=== PATIENT | female | born 1960 | race Caucasian/White ===

== ENCOUNTER 2017-05-05 10:25 | Observation (INO) | payer BC ==
--- NOTE | ~2017-05-05 | HP ---
History And Physical [place] [address] [facility] [place]. [address] NAME: CIRA HORN : 60 STATUS : ADM Jovana PAT#: [id number] AGE: 56 ADM/REG DATE : 05/05/17 MR#: [id number] REPORT SERV DATE: 05/05/17 DICTATED BY: CASSIUS ELLINGTON DATE: 05/05/17 REPORT STATUS : Draft TRANSCRIBED BY: MODL DATE: 05/05/17 DATE OF ADMISSION: 05/05/2017 CHIEF COMPLAINT: Right ankle fracture. HISTORY: The patient is a 56-year-old, who visit some friends, run on some stairs and sustained a trimalleolar ankle fracture. She was brought to emergency department with deformity of her ankle. In the emergency department, we reduced the ankle . She apparently . She lives in [place]. Says history of spinal fusion in the past and followed by Neurosurgery at [place]. She had no complaints to her ankle prior to this injury. PAST MEDICAL HISTORY: Hypercholesterolemia. ALLERGIES: SULFA. MEDICATIONS: Documented in the chart and performed on med rec. SOCIAL HISTORY: She is . Lives with in [place]. No smoking. FAMILY HISTORY: Noncontributory. REVIEW OF SYSTEMS: Times 10 negative except for above. PHYSICAL EXAMINATION: GENERAL: Well-developed, well-nourished female, in no acute distress. HEENT: Normocephalic, atraumatic. RESPIRATORY: Nonlabored respirations. Equal chest rise bilaterally. EXTREMITIES: No cyanosis, clubbing, or edema. Splint on the right lower extremity. MUSCULOSKELETAL: Moving her toes. Sensation is intact to light touch. Cap refill is less than 2. She is in a splint due to the acute reduction. SKIN: No rashes or lesions of her extremities. PSYCH: Appropriate mood and affect. NEURO: Alert and oriented x3. DIAGNOSTIC DATA: X-rays show a trimalleolar ankle fracture, right ankle. Postreduction films are pending. ASSESSMENT AND PLAN: Trimalleolar ankle fracture. We are going to admit her to hospital overnight. Keep her n.p.o. after midnight. We will plan for operative fixation of this ankle fracture tomorrow. Discussed risks, benefits with her and she wants to proceed. We will plan for open reduction and internal fixation tomorrow. History And Physical [place] [address] [facility] [address] NAME: CIRA HORN : 60 STATUS : ADM Jovana PAT#: [id number] AGE: 56 ADM/REG DATE : 05/05/17 MR#: [id number] REPORT SERV DATE: 05/05/17 DICTATED BY: CASSIUS ELLINGTON DATE: 05/05/17 REPORT STATUS : Draft TRANSCRIBED BY: PAULA DATE: 05/05/17 SUNG/PAULA Cassius Ellington MD / [id number] CC: Cassius Ellington MD
--- NOTE | ~2017-05-05 | OP ---
Record Of Operation [facility] [address] [place]. [address] NAME: CIRA HORN : 60 STATUS : ADM Jovana PAT#: [id number] AGE: 56 ADM/REG DATE : 05/05/17 MR#: [id number] REPORT SERV DATE: 05/06/17 DICTATED BY: CASSIUS ELLINGTON DATE: 05/06/17 REPORT STATUS : Draft TRANSCRIBED BY: MODL DATE: 05/06/17 DATE OF PROCEDURE: 05/06/2017 PREOPERATIVE DIAGNOSIS: Right bimalleolar ankle fracture. POSTOPERATIVE DIAGNOSIS: Right bimalleolar ankle fracture. PROCEDURE: Open treatment of bimalleolar ankle fracture with internal fixation. SURGEON: Cassius Ellington MD. ANESTHESIA: General. ESTIMATED BLOOD LOSS: 15. IMPLANTS: Arthrex lateral locking plate and 4.0 cannulated screws medially. SPECIMEN: None. ANTIBIOTICS: Ancef was given prior to incision. HISTORY: The patient is a 56-year-old female, who fell yesterday down some stairs and sustained a fracture/dislocation of right ankle. She was brought to the emergency department and then had her ankle reduced in the emergency department by the emergency physician. She was placed in a splint. She was then admitted to the hospital overnight for pain control. We discussed risks and benefits of surgery and nonoperative treatment with her and she elected for surgery. We discussed the risks including cardiac and pulmonary complication, anesthesia, damage to surrounding tissue, infection, nonunion, malunion, failure to heal. After discussing those risks, she elected to proceed. OPERATIVE NOTE: The patient was seen in the preoperative area, consented, and marked. We answered all the questions she had to her satisfaction. She was taken back to the operative suite, placed in supine position. Underwent general anesthesia. We prepped and draped the right leg in sterile fashion and paused to perform a time-out, confirming correct patient, procedure, diagnosis, and extremity. I first started with a lateral approach to the fibula, dissected down to the fracture site. I was able to anatomically reduce the fracture under direct visualization, held it with a clamp and then placed a lag screw from anterior to posterior. The lag screw was then placed on the fracture and reduced. We placed a lateral plate on the fibula. We placed three proximal cortical screws and then four locking screws distally. We completed our fixation of the fibula. We took x-rays, AP and lateral planes, to make sure it had appropriate reduction and fixation. We then proceeded to the medial malleolus. I made a medial approach over the medial side of her ankle. She had a previous incision over on this side. Previous to this, I dissected down to the fracture site. I was able to Record Of Operation [place] [address] [place]. [address] NAME: CIRA HORN : 60 STATUS : ADM Jovana PAT#: [id number] AGE: 56 ADM/REG DATE : 05/05/17 MR#: [id number] REPORT SERV DATE: 05/06/17 DICTATED BY: CASSIUS ELLINGTON DATE: 05/06/17 REPORT STATUS : Draft TRANSCRIBED BY: PAULA DATE: 05/06/17 reduce the fracture, held it anatomically with a clamp. I then placed two guidewires across the fracture, placed 4.0 cannulated screws, getting good purchase, compressing the fracture on the medial side. When that was completed, we took x-rays, AP, lateral, mortise, and a stress view, and felt that our reduction was anatomic. We had the appropriate implants in position. When that was completed, we irrigated all the wounds, closed the wounds, placed her in a splint. She was awakened, no complications, taken to PACU in stable condition. Postop, she will be discharged home either today or in the morning and she is going to follow up in [place] because that is where she lives. SUNG/PAULA Cassius Ellington MD / [id number] CC: Cassius Ellington MD
[2017-05-05] MEDS ORDERED: WELLXL300 PO (11:19)
[2017-05-05] MEDS ORDERED: CYMBALTA60 PO (11:19)
[2017-05-05] MEDS ORDERED: ADDER10 PO (11:19)
[2017-05-05] MEDS ORDERED: ZOCOR10 PO (11:19)
[2017-05-05] MEDS ORDERED: ROXICODONE15 MG PO (11:20)
[2017-05-05] MEDS ORDERED: IBU600 PO (11:20)
[2017-05-05] MEDS ORDERED: FLEXERIL5 MG PO (11:20)
[2017-05-05] MEDS ORDERED: NEUR100 PO (11:20)
[2017-05-05] MEDS ORDERED: PRILOSEC40 MG PO (11:21)
[2017-05-05] MEDS ORDERED: BUSPAR5 PO (11:21)
[2017-05-05 18:14] LABS: ALBUMIN 3.3 G/DL (3.5-5.0); ALKALINE PHOSPHATASE 96 U/L (45-117); BUN (BLOOD UREA NITROGEN) 18 MG/DL (6-23); CALCIUM, SERUM 8.6 MG/DL (8.5-10.4); CHLORIDE, SERUM 109 MMOL/L (96-112); CO2 (CARBON DIOXIDE) 24 MMOL/L (24-34); CREATININE 0.95 MG/DL (0.55-1.02); GFR AFRICAN AMERICAN 78 ML/MIN (>=60); GFR NON AFRICAN AMERICAN 67 ML/MIN (>=60); GLOBULIN 3.4 G/DL (2.5-4.1); GLUCOSE, SERUM 135 MG/DL (60-99); SGPT(ALT) 29 U/L (5-65); SODIUM, SERUM 137 MMOL/L (135-148); TOTAL BILIRUBIN 0.3 MG/DL (0-1.2); TOTAL PROTEIN 6.7 G/DL (6.0-8.5)
[2017-05-05 18:17] LABS: POTASSIUM, SERUM 5.5 MMOL/L (3.5-5.3); SGOT(AST) 55 U/L (5-40)
[2017-05-05 19:04] LABS: BASOPHILS 0.3 %; BASOPHILS ABSOLUTE 0.03 10/3/uL (0.0-0.16); EOSINOPHILS 4.2 %; EOSINOPHILS ABSOLUTE 0.37 10/3/uL (0.0-0.53); HEMATOCRIT 34.6 % (36.0-48.0); IMMATURE GRANULOCYTES 0.1 %; IMMATURE GRANULOCYTES ABSOLUTE 0.01 10/3/uL (0.0-0.11); LYMPHOCYTES 32.8 %; LYMPHOCYTES ABSOLUTE 2.92 10/3/uL (0.67-4.30); MANUAL DIFF NO %; MEAN CORPUS HGB CONC 31.8 g/dL (32.0-36.0); MEAN CORPUSCULAR HEMOGLOB 26.9 pg (26.0-34.0); MEAN CORPUSCULAR VOLUME 84.6 fL (80-100); MEAN PLATELET VOLUME 8.2 fL (9.2-13.0); MONOCYTES 6.9 %; MONOCYTES ABSOLUTE 0.61 10/3/uL (0.21-1.20); NEUTROPHILS 55.7 %; NEUTROPHILS ABSOLUTE 4.96 10/3/uL (2.02-8.40); PLATELET COUNT 248 10/3/uL (150-400); RBC DISTRIBUTION WIDTH 12.8 % (12.0-16.0); RED CELL COUNT 4.09 10/6/uL (4.0-5.6); WHITE BLOOD CELLS 8.9 10/3/uL (4.5-10.5)
[2017-05-05 19:12] LABS: PROTIME (NOT ORD) 13.3 SEC (12.0-14.5)
[2017-05-05 19:13] LABS: PARTIAL THROMBO TIME 26.1 SEC (22.5-37.2)
[2017-05-07 07:52] LABS: HEMATOCRIT 34.2 % (36.0-48.0)
[2017-05-07 08:25] LABS: CALCIUM, SERUM 8.6 MG/DL (8.5-10.4); CHLORIDE, SERUM 106 MMOL/L (96-112); CO2 (CARBON DIOXIDE) 28 MMOL/L (24-34); CREATININE 0.91 MG/DL (0.55-1.02); GFR AFRICAN AMERICAN 82 ML/MIN (>=60); GFR NON AFRICAN AMERICAN 71 ML/MIN (>=60); POTASSIUM, SERUM 4.7 MMOL/L (3.5-5.3); SODIUM, SERUM 137 MMOL/L (135-148)
[2017-05-07 08:28] LABS: BUN (BLOOD UREA NITROGEN) 12 MG/DL (6-23); GLUCOSE, SERUM 193 MG/DL (60-99)
[2017-05-07] MEDS ORDERED: ASA5GR PO (09:45)
[2017-05-07] MEDS ORDERED: OXYCOD PO (09:48)
[2017-05-07] MEDS ORDERED: ZOFRAN4 PO (09:49)
== END 2017-05-07 14:13 | disposition home or self-care (01) ==
LOC: ER 10:25 → 3SO 12:23 → 1SO 13:44
PROVIDERS: Orthopaedic Surgery Sports Medicine
PROC: 0QSG04Z Reposition Right Tibia with Internal Fixation Device, Open Approach (ICD-10-PCS; 2017-05-06)
PROC: 0QSJ04Z Reposition Right Fibula with Internal Fixation Device, Open Approach (ICD-10-PCS; principal; 2017-05-06 09:45)
DX: S82.841A Displaced bimalleolar fracture of right lower leg, initial encounter for closed fracture (principal); E78.00 Pure hypercholesterolemia, unspecified; Z88.2 Allergy status to sulfonamides
CPT/HCPCS: 71010; 72170; 73610-RT; 80048; 80053; 85014; 85018; 85025; 85610; 85730; 93005; 96374; 96375; 96376; 97161-GP; 99285; A9270-GY; C1713; G0378; J0690; J1170; J2250; J2270; J2405; J2710; J3010